=== PATIENT | male | born 1950 | race American Indian/Alaskan Native ===

== ENCOUNTER 2020-08-17 18:35 | Emergency (ER) | payer MEDICARE, OTHER ==
--- NOTE | 2020-08-17 20:11 | Emergency Department Report ---
ED Lower Extremity HPI - General Chief Complaint: Extremity Injury, Lower Stated Complaint: RIGHT FOOT INJURY Time Seen by Provider: 08/17/20 20:06 Source: patient Mode of arrival: Wheelchair Limitations: No Limitations - History of Present Illness MD Complaint: ankle injury, foot injury -: week(s) (3) Injury: Ankle: Right, Foot: Right Type of Injury: inversion Place: home Context: fall (Mechanical trip and fall) Associated Symptoms: snap/pop sensation, swelling, able to partially bear weight. denies: numbness, tingling, other - Related Data Previous Rx's Medication Instructions Recorded Last Taken Type Acetaminophen/Codeine [Tylenol 1 tab PO Q6H PRN #10 tab 08/17/20 Unknown Rx /Codeine # 3 tab] Allergies Allergy/AdvReac Type Severity Reaction Status Date / Time No Known Allergies Allergy Unverified 08/17/20 20:04 ED Review of Systems ROS: Stated complaint: RIGHT FOOT INJURY Other details as noted in HPI Comment: All other systems reviewed and negative ED Past Medical Hx - Past Medical History Previous Medical History?: No - Surgical History Past Surgical History?: No - Social History Smoking Status: Never Smoker Substance Use Type: None - Medications Home Medications: Home Medications Medication Instructions Recorded Confirmed Last Taken Type Acetaminophen/Codeine [Tylenol 1 tab PO Q6H PRN #10 tab 08/17/20 Unknown Rx /Codeine # 3 tab] ED Physical Exam - General Limitations: No Limitations General appearance: alert, in no apparent distress - Head Head exam: Present: atraumatic, normocephalic - Eye Eye exam: Present: normal appearance, PERRL, EOMI Pupils: Present: normal accommodation - ENT ENT exam: Present: normal exam, normal orophraynx, mucous membranes moist, TM's normal bilaterally - Neck Neck exam: Present: normal inspection, full ROM. Absent: tenderness, lymphadenopathy - Respiratory Respiratory exam: Present: normal lung sounds bilaterally. Absent: respiratory distress, wheezes, rales, chest wall tenderness - Cardiovascular Cardiovascular Exam: Present: regular rate, normal rhythm. Absent: systolic murmur, diastolic murmur, rubs, gallop - GI/Abdominal GI/Abdominal exam: Present: soft, normal bowel sounds. Absent: tenderness, rebound, hypoactive bowel sounds - Rectal Rectal exam: Present: deferred - Extremities Exam Extremities exam: Present: normal inspection, tenderness, normal capillary refill - Expanded Lower Extremity Exam Right Ankle exam: Present: tenderness, swelling. Absent: ecchymosis, deformity, dislocation, erythema, anterior draw sign Foot/Toe exam: Present: tenderness (To the medial aspect of the foot along the instep), swelling. Absent: laceration, ecchymosis, erythema, amputation, puncture wound, foreign body - Back Exam Back exam: Present: normal inspection. Absent: CVA tenderness (R), CVA tenderness (L) - Neurological Exam Neurological exam: Present: alert, oriented X3 - Psychiatric Psychiatric exam: Present: normal affect, normal mood - Skin Skin exam: Present: warm, dry, intact, normal color. Absent: rash ED Course Vital Signs 08/17/20 20:06 Pulse Rate 72 Respiratory 18 Rate Blood Pressure 127/79 O2 Sat by Pulse 95 Oximetry - Orthopedic Splinting/Casting Injury #1 Side: right Lower Extremity Injury Location: ankle, foot Lower Extremity Immobilizer: stirrup splint Other Orthopedic Equipment: crutches ED Lower Extremity MDM - Radiology Data Radiology results: report reviewed [address] [place] [id number] XRay Report Signed Patient: TONY VASQUEZ MR#: [id number] : 1950 Acct:[id number] Age/Sex: 70 / M ADM Date: 08/17/20 Loc: ED Attending Dr: Ordering Physician: ERIC FLORES Date of Service: 08/17/20 Procedure(s): XR ankle 3+V RT Accession Number(s): [id number] cc: ERIC FLORES Fluoro Time In Minutes: XR ankle 3+V RT, XR foot 3+V RT INDICATION / CLINICAL INFORMATION: Pain after fall. COMPARISON: None available. FINDINGS: No acute fracture. Normal alignment. Joint spaces are preserved. No destructive osseous lesion or suspicious periosteal reaction. Arterial atherosclerosis. Impression: 1.No acute fracture. Signer Name: Lopez Menchaca MD Signed: 08/17/2020 8:34 PM Workstation Name: [id number] Transcribed By: CS Dictated By: Lopez Menchaca MD Electronically Authenticated By: Lopez Menchaca MD Signed Date/Time: 08/17/202033 DD/ 31 TD/TT: Print Cancel Critical care attestation.: If time is entered above; I have spent that time in minutes in the direct care of this critically ill patient, excluding procedure time. ED Disposition Clinical Impression: Ankle sprain Disposition: - TO HOME OR SELFCARE Is pt being admited?: No Does the pt Need Aspirin: No Condition: Stable Instructions: How to Use Cold Therapy, How to Use a Stirrup Ankle Brace, [id number], Ankle Sprain, Elastic Bandage and RICE Therapy, How to Use a Stirrup Ankle Brace Prescriptions: Acetaminophen/Codeine [Tylenol /Codeine # 3 tab] 1 tab PO Q6H PRN #10 tab PRN Reason: foot pain Referrals: PRIMARY CARE, [Primary Care Provider] - 3-5 Days LATESHA GRACIA MD [Staff Physician] - 3-5 Days
--- NOTE | 2020-08-17 20:38 | XRay Report ---
XR ankle 3+V RT, XR foot 3+V RT INDICATION / CLINICAL INFORMATION: Pain after fall. COMPARISON: None available. FINDINGS: No acute fracture. Normal alignment. Joint spaces are preserved. No destructive osseous lesion or s uspicious periosteal reaction. Arterial atherosclerosis. Impression: 1.No acute fracture. Signer Name: Lopez Menchaca MD Signed: 08/17/2020 8:34 PM Workstation Name: [email or web address]
[2020-08-17 20:43] VITALS: BP 127/79
== END 2020-08-17 22:35 | disposition home or self-care (01) ==
LOC: ED 18:35
DX: S93.401A Sprain of unspecified ligament of right ankle, initial encounter (principal); Z79.899 Other long term (current) drug therapy; W01.0XXA Fall on same level from slipping, tripping and stumbling without subsequent striking against object, initial encounter; Y93.89 Activity, other specified; Y92.89 Other specified places as the place of occurrence of the external cause; Y99.8 Other external cause status

== ENCOUNTER 2020-10-05 16:20 | Emergency (ER) | payer OTHER ==
--- NOTE | 2020-10-05 17:12 | Event Note ---
ED Screening Note ED Screening Note: Patient is a 70-year-old male presents to emergency room complaints of a fall that occurred just prior to arrival He states he was using the leaf blower and fell over his lumbar He states he fell directly onto his left shoulder He has associated left shoulder pain and right elbow pain There is an abrasion to the right elbow He denies hitting his head, loss of consciousness, neck pain, back pain, numbness, weakness, vomiting, vision changes Concern for left shoulder dislocation, he is neurovascularly intact bilaterally This initial assessment/diagnostic orders/clinical plan/treatment(s) is/are subject to change based on patients health status, clinical progression and re- assessment by fellow clinical providers in the ED. Further treatment and workup at subsequent clinical providers discretion. Patient/guardian urged not to elope from the ED as their condition may be serious if not clinically assessed and managed. Initial orders include: X-rays
--- NOTE | 2020-10-05 17:30 | Emergency Department Report ---
HPI - General Chief Complaint: Shoulder Injury Time Seen by Provider: 10/05/20 17:10 - HPI HPI: This is a 70-year-old -[place] male presents to the emergency department with left shoulder pain and right elbow pain after he fell backwards over his lawnmower. 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 He backed up and accidentally tripped over the lawnmower and "I flew in the air" and he fell back onto his back. He is unsure whether or not he hit his head but does admit to feeling "dazed" when this first occurred. Currently he denies any headache, neck pain, back pain, numbness or paresthesias. The patient has not taken anything for his symptoms prior to presentation. His main complaint is left shoulder pain, 6 out of 10 in intensity when at rest, and 10 out of 10 when the left upper extremity moves. He has some mild right elbow pain and an abrasion to the right elbow. ED Past Medical Hx - Past Medical History Previous Medical History?: No - Social History Smoking Status: Never Smoker Substance Use Type: None - Medications Home Medications: Home Medications Medication Instructions Recorded Confirmed Last Taken Type Acetaminophen/Codeine [Tylenol 1 tab PO Q6H PRN #10 tab 08/17/20 Unknown Rx /Codeine # 3 tab] HYDROcodone/APAP 5-325 [[place] 1 each PO Q6HR PRN #12 tablet 10/05/20 Unknown Rx 5/325] ED Review of Systems ROS: Stated complaint: FALL LT SHOULDER INJURY Other details as noted in HPI Comment: All other systems reviewed and negative Constitutional: denies: chills, fever Eyes: denies: eye pain, vision change ENT: denies: ear pain, throat pain Respiratory: denies: cough, shortness of breath Cardiovascular: denies: chest pain, palpitations Gastrointestinal: denies: abdominal pain, vomiting Genitourinary: denies: dysuria, discharge Musculoskeletal: arthralgia, myalgia. denies: back pain Skin: other (Right elbow abrasion). denies: rash Neurological: denies: numbness, paresthesias Physical Exam - Physical Exam Vital Signs: Vital Signs 10/05/20 17:06 Temperature 98 F Pulse Rate 81 Respiratory 18 Rate Blood Pressure 118/80 [Right] O2 Sat by Pulse 98 Oximetry Physical Exam: GENERAL: The patient is well-developed well-nourished. HENT: Normocephalic. Atraumatic. Patient has moist mucous membranes. EYES: Extraocular motions are intact. NECK: Supple. Trachea is midline. No tenderness to palpation. CHEST/LUNGS: Clear to auscultation. There is no respiratory distress noted. HEART/CARDIOVASCULAR: Regular. There is no tachycardia. There is no murmur. ABDOMEN: Abdomen is soft, nontender. Patient has normal bowel sounds. SKIN: Skin is warm and dry. There is a circular abrasion to the right olecranon. NEURO: The patient is awake, alert, and oriented. The patient is cooperative. The patient has no focal neurologic deficits. Normal speech. Cranial nerves II through XII grossly intact. MUSCULOSKELETAL: There is tenderness to palpation to the left upper extremity from the elbow up through the shoulder. There is some tenderness to palpation along the left side of the trapezius muscle and over the left scapula. There is increased pain to the left upper extremity, worst at the shoulder, with both passive and active range of motion. Decreased range of motion secondary to pain. Radial pulse +2/4 and capillary refill less than 2 seconds to the affected left upper extremity. BACK: No midline thoracic or lumbar tenderness to palpation. ED Course Vital Signs 10/05/20 17:06 Temperature 98 F Pulse Rate 81 Respiratory 18 Rate Blood Pressure 118/80 [Right] O2 Sat by Pulse 98 Oximetry ED Medical Decision Making - Radiology Data Radiology results: report reviewed X-ray of the left and right elbow, left shoulder, and left scapula, did not show any fracture, dislocation or any signs of osteomyelitis. - Medical Decision Making This patient presents to the emergency department with a complaint of left arm pain from the elbow up through the shoulder after falling over backwards over his lawnmower. He may or may not have hit his head but there was no loss of consciousness. The patient has no complaints of any headache, neck pain, back pain. He has a circular abrasion to the right elbow. He has decreased range of motion of the left upper extremity secondary to pain. He is neurovascularly intact. X-rays were done of the left and right elbow, left shoulder, and left scapula, that did not show any fractures, dislocations, signs of osteomyelitis, foreign body, or any other acute processes. Patient was given a Percocet for pain. He was placed in a shoulder immobilizer. He will be discharged home to follow-up with orthopedist. He will return to the emergency department with any worsening of his symptoms or with any acute distress. Critical Care Time: No Critical care attestation.: If time is entered above; I have spent that time in minutes in the direct care of this critically ill patient, excluding procedure time. ED Disposition Clinical Impression: Left shoulder pain Qualifiers: Chronicity: acute Qualified Code(s): M25.512 - Pain in left shoulder Contusion of shoulder Qualifiers: Encounter type: initial encounter Laterality: left Qualified Code(s): S40.012A - Contusion of left shoulder, initial encounter Fall Qualifiers: Encounter type: initial encounter Qualified Code(s): W19.XXXA - Unspecified fall, initial encounter Disposition: TO HOME OR SELFCARE Is pt being admited?: No Condition: Stable Instructions: Shoulder Pain, Joint Pain Additional Instructions: Please follow-up with an orthopedist in the next few days. I have given you a referral for 2 different local orthopedic groups, Dr. Gomes and Sandra. Use the shoulder immobilizer as needed for your shoulder and arm pain. You have been prescribed a medication that is sedating and therefore should not be taken prior to driving, working, and responsible for children and in no way should be mixed with alcohol of any quantity. Return to the emergency department with any worsening of your symptoms, new or concerning symptoms not addressed during this current emergency department visit, or with any acute distress. Prescriptions: HYDROcodone/APAP 5-325 [[place] 5/325] 1 each PO Q6HR PRN #12 tablet PRN Reason: Pain Referrals: LATESHA GOMES MD [Staff Physician] - 2-3 Days [facility]ON[facility] [Provider Group] - 2-3 Days Time of Disposition: 19:06
--- NOTE | 2020-10-05 17:39 | XRay Report ---
XR shoulder 2+V LT INDICATION / CLINICAL INFORMATION: fall, right elbow abrasion, elbow pain. COMPARISON: None available. FINDINGS: BONES/JOINT(S): No acute fracture or subluxation. Mild DJD in the AC joint. SOFT TISSUES: No significant abnormality. ADDITIONAL FINDINGS: None. Signer Name: Pee Webb MD Signed: 10/05/2020 5:34 PM Workstation Name: [id number]
--- NOTE | 2020-10-05 17:39 | XRay Report ---
XR elbow 3+V RT INDICATION: fall directly on shoulder, left shoulder pain. COMPARISON: None available. FINDINGS: There is no appreciable acute fracture in the elbow. 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 There is no appreciable joint effusion. Signer Name: Pee Webb MD Signed: 10/05/2020 5:34 PM Workstation Name: [id number]
[2020-10-05] MEDS ORDERED: oxyCODONE /ACETAMINOPHEN 5-325MG TAB PO ONE (17:46)
--- NOTE | 2020-10-05 18:54 | XRay Report ---
LEFT SCAPULA 3 VIEWS INDICATION / CLINICAL INFORMATION: left scapular pain, fall COMPARISON: None available. FINDINGS: BONES / JOINT(S): No acute fracture or subluxation. No significant arthritis. SOFT TISSUES: No significant abnormality. ADDITIONAL FINDINGS: None. Signer Name: Kalen Alejandre MD Signed: 10/05/2020 6:50 PM Workstation Name: [id number]
--- NOTE | 2020-10-05 19:01 | XRay Report ---
LEFT ELBOW 3 VIEW(S) INDICATION / CLINICAL INFORMATION: left elbow pain, fall COMPARISON: None available. FINDINGS: BONES / JOINT(S): No acute fracture or subluxation. There is mild degenerative change. There is enthe sopathic change of the olecranon SOFT TISSUES: No joint effusion is seen. ADDITIONAL FINDINGS: None. Signer Name: Kalen Alejandre MD Signed: 10/05/2020 6:57 PM Workstation Name: [id number]
[2020-10-05 19:32] VITALS: BP 130/85
== END 2020-10-05 19:30 | disposition home or self-care (01) ==
LOC: ED 16:20
DX: S40.012A Contusion of left shoulder, initial encounter (principal); Z79.899 Other long term (current) drug therapy; W01.0XXA Fall on same level from slipping, tripping and stumbling without subsequent striking against object, initial encounter; Y93.89 Activity, other specified; Y92.89 Other specified places as the place of occurrence of the external cause; Y99.8 Other external cause status

== ENCOUNTER 2020-11-06 10:22 | Emergency (ER) | payer OTHER ==
[2020-11-06 11:17] VITALS: BP 116/74
== END 2020-11-06 12:00 | disposition home or self-care (01) ==
LOC: ED 10:22
DX: M70.31 Other bursitis of elbow, right elbow (principal)
CPT/HCPCS: 99281